=== PATIENT | female | born 1960 | race Caucasian/White ===

== ENCOUNTER → 2016-09-22 | Day surgery (SDC) | payer OTHER ==
[~2016-09-22] MED LIST: CENTRUM SILVER PO; DULOXETINE HCL60 MG PO; FISH OIL 1,0001 CA2 PO; LINZESS290 MCG PO; MOBIC15 MG PO; NAPROSYN-EC500 MG PO; PLAQUENIL200 MG PO; REQUIP2 MG PO; RIZATRIPTAN10 M2 PO; ROPINIROLE HCL0.5 MG PO; SARAFEM20 MG PO; SUPER B COMPLEX1 CAP PO
--- NOTE | ~2016-09-22 | OR ---
Unit #: [id number] #: [id number] Patient: RON ASHLEY [id number] [address] [place], [place] [address] [id number] MR#: [id number] NAME: RON ASHLEY ROOM: Date of Procedure: 09/22/2016 Admission Date: 09/22/2016 Surgeon: Noe Maldonado M.D. : 1960 Attending Physician: Noe Maldonado M.D. Primary Care Physician: Rowena Trivedi A.P.R.N. OPERATIVE REPORT PREOPERATIVE DIAGNOSES Post-cervical fusion, cervical disk disease, neck pain, cervical radiculopathy. POSTOPERATIVE DIAGNOSES Post-cervical fusion, cervical disk disease neck pain, cervical radiculopathy. PROCEDURE PERFORMED Cervical epidural steroid injection with intravenous sedation and fluoroscopic guidance for needle localization. INDICATIONS FOR PROCEDURE The patient is a 56-year-old female, who has had a return of neck and upper extremity pain associated with previous mentioned diagnosis. She was last treated with epidural steroids 8 months ago. She did well for about 7 months. This is long with that she had done with prior injections and she has gradually been doing better. She has known adjacent level disease, most significant below the level of her C5-C7 fusion. Plan is to repeat injection today at the C7-T1 level. DESCRIPTION OF PROCEDURE The patient was placed in a seated position. Standard monitors were applied. 2 mg of Versed were given for sedation and anxiolysis, which were adequate. Vital signs remained stable. Sterile prep and drape then of the cervical area was performed. The skin at the C7-T1 level was localized with 1% lidocaine. An 18-gauge Directa Plustead needle was then advanced via hanging drop technique and fluoroscopic guidance in toward the epidural space. After confirming proper positioning with fluoroscopy and radiographic contrast, 80 mg of Depo-Medrol and 2 mL of 0.125% bupivacaine were deposited. The patient tolerated the procedure otherwise well and was discharged to recovery room in stable condition. Dictated by... Isabel Gregory/ozzy TD: 09/22/2016 14:00 Unit #: [id number] #: [id number] Patient: RON ASHLEY #: [id number] OPERATIVE REPORT Page 1 of 1 X Noe Maldonado MD X PROCEDURE OPERATIVE NOTE
== END | disposition home or self-care (01) ==
LOC: CCSC 08:34
DX: M50.10 Cervical disc disorder with radiculopathy, unspecified cervical region (principal); G43.909 Migraine, unspecified, not intractable, without status migrainosus; M06.9 Rheumatoid arthritis, unspecified; F41.9 Anxiety disorder, unspecified; F32.9 Major depressive disorder, single episode, unspecified; Z79.899 Other long term (current) drug therapy; Z98.1 Arthrodesis status
CPT/HCPCS: J1040; J2250